=== PATIENT | female | born 1975 | race Caucasian/White ===

== ENCOUNTER 2022-11-02 12:42 | Outpatient (CLI) | payer BC | END 2022-11-02 12:43 | disposition home or self-care (01) | LOC: CSHMAMMO 12:42 | PROVIDERS: ATTEND Obstetrics & Gynecology | DX: Z12.31 Encounter for screening mammogram for malignant neoplasm of breast (principal); N64.89 Other specified disorders of breast | CPT/HCPCS: 77063; 77067 ==

== ENCOUNTER 2022-11-05 13:18 | Outpatient (CLI) | payer BC | END 2022-11-05 13:19 | disposition home or self-care (01) | LOC: CSHMAMMO 13:18 | PROVIDERS: ATTEND Obstetrics & Gynecology | DX: N64.89 Other specified disorders of breast (principal) | CPT/HCPCS: G0279 ==

== ENCOUNTER 2023-05-30 13:52 | Outpatient (CLI) | payer BC | END 2023-05-30 13:53 | disposition home or self-care (01) | LOC: CSHULT 13:52 | PROVIDERS: ATTEND Internal Medicine Hematology & Oncology | DX: C50.211 Malignant neoplasm of upper-inner quadrant of right female breast (principal) | CPT/HCPCS: 93306 ==

== ENCOUNTER 2023-09-01 12:45 | Outpatient (CLI) | payer BC | END 2023-09-01 12:46 | disposition home or self-care (01) | LOC: CSHULT 12:45 | PROVIDERS: ATTEND Internal Medicine Hematology & Oncology | DX: Z01.810 Encounter for preprocedural cardiovascular examination (principal); C50.211 Malignant neoplasm of upper-inner quadrant of right female breast; I34.0 Nonrheumatic mitral (valve) insufficiency | CPT/HCPCS: 93306 ==